=== PATIENT | male | born 1935 | race Caucasian/White ===

== ENCOUNTER → 2018-04-26 | Outpatient (REF) | payer MEDICARE, OTHER ==
[~2018-04-26] MED LIST: ASPIRIN LOW DOS81 M2 PO; CEPHALEXIN500 MG PO; LABETALOL100 MG PO; LISINOPRIL10 MG PO; METFORMIN500 MG PO; MYSOLINE250 M1 PO; PRIMIDONE250 MG PO; SIMVASTATIN20 MG PO; TERAZOSIN5 MG PO
[2018-04-26 10:12] LABS: ALBUMIN 3.9 g/dL (3.2-5.0); ALKALINE PHOSPHATASE 130 u/l (38-126); ANION GAP 18 (6-22 (CALC)); BILIRUBIN, TOTAL 0.4 mg/dL (0.0-1.4); BUN 17 mg/dL (8-23); BUN/CREATININE RATIO 18 (12-20 (CALC)); CARBON DIOXIDE 23 mmol/l (22-30); CHLORIDE 100 mmol/l (95-108); CREATININE 0.9 mg/dL (0.7-1.3); GFR > 60 ML/MIN (>=60 (CALC)); GFR FOR AFR.AMER. > 60 ML/MIN (>=60 (CALC)); POTASSIUM 4.9 mmol/l (3.5-5.1); SGOT/AST 39 u/l (19-48); SODIUM 135 mmol/l (137-146)
== END | disposition home or self-care (01) ==
LOC: LAB 08:15
PROVIDERS: ATTEND Internal Medicine Geriatric Medicine
DX: E11.65 Type 2 diabetes mellitus with hyperglycemia (principal)